=== PATIENT | female | born 1985 | race American Indian/Alaskan Native ===

== ENCOUNTER 2019-04-06 02:05 | Emergency (ER) | payer BC ==
[2019-04-06 02:34] LABS: Basophils # (Auto) 0.1 K/mm3 (0.0-0.1); Basophils % (Auto) 0.5 % (0.0-1.8); Eosinophils # (Auto) 0.1 K/mm3 (0.0-0.4); Eosinophils % (Auto) 1.1 % (0.0-4.3); Hematocrit 36.8 % (30.3-42.9); Hemoglobin 12.8 gm/dl (10.1-14.3); Lymphocytes # (Auto) 2.2 K/mm3 (1.2-5.4); Mean Corpuscular HGB Conc 35 % (30-34); Mean Corpuscular Volume 98 fl (79-97); Monocytes # (Auto) 0.9 K/mm3 (0.0-0.8); Monocytes % (Auto) 9.1 % (0.0-7.3); Platelet Count 267 K/mm3 (140-440); Red Blood Count 3.77 M/mm3 (3.65-5.03); Red Cell Distribution Width 12.2 % (13.2-15.2)
[2019-04-06 02:53] LABS: HCG Qualitative,Urine Negative (Negative)
[2019-04-06 02:55] LABS: Bacteria,Urine 1+ /HPF (Negative); Bilirubin,Urine NEG (Negative); Blood,Urine MOD (Negative); Color,Urine Yellow (Yellow); Urobilinogen,Urine < 2.0 mg/dL (<2.0)
[2019-04-06 02:55] LABS: Alanine Aminotransferase 9 units/L (7-56); Albumin 4.3 g/dL (3.9-5); BUN/Creatinine Ratio 8; Blood Urea Nitrogen 6 mg/dL (7-17); Hemolysis Index 0
[2019-04-06 02:59] LABS: WBC,Urine > 182.0 /HPF (0.0-6.0)
[2019-04-06] MEDS ORDERED: cefTRIAXone/NS 1 GM/50 ML 1 GM/50 ML BAG IV ONE (04:02)
--- NOTE | 2019-04-06 04:59 | Emergency Department Report ---
ED Female HPI - General Chief complaint: Abdominal Pain Stated complaint: RT FLANK PAIN Time Seen by Provider: 04/06/19 03:48 Source: patient Mode of arrival: Ambulatory Limitations: No Limitations - History of Present Illness Initial comments: Patient is a 33-year-old female presents to the emergency room with complaints of right lower back pain that began a couple days ago. She has associated pressure upon urinating. Patient denies any abdominal pain, fever, nausea, vomiting or diarrhea, abnormal vaginal discharge. She states that she is able tolerate by mouth intake. She states that she has implanted control. Denies any past medical history or allergies to medications. - Related Data Previous Rx's Medication Instructions Recorded Last Taken Type cephALEXin [Keflex] 500 mg PO BID 10 Days #20 capsule 04/06/19 Unknown Rx Allergies Allergy/AdvReac Type Severity Reaction Status Date / Time No Known Allergies Allergy Verified 04/06/19 02:10 ED Review of Systems ROS: Stated complaint: RT FLANK PAIN Other details as noted in HPI Comment: All other systems reviewed and negative ED Past Medical Hx - Past Medical History Previous Medical History?: No - Surgical History Past Surgical History?: Yes Hx Cholecystectomy: Yes - Social History Smoking Status: Current Every Day Smoker Substance Use Type: None - Medications Home Medications: Home Medications Medication Instructions Recorded Confirmed Last Taken Type cephALEXin [Keflex] 500 mg PO BID 10 Days #20 capsule 04/06/19 Unknown Rx ED Physical Exam - General Limitations: No Limitations General appearance: alert, in no apparent distress - Head Head exam: Present: atraumatic, normocephalic - Eye Eye exam: Present: normal appearance - ENT ENT exam: Present: mucous membranes moist - Respiratory Respiratory exam: Present: normal lung sounds bilaterally. Absent: respiratory distress, wheezes, rales, rhonchi, stridor, chest wall tenderness, accessory muscle use, decreased breath sounds, prolonged expiratory - Cardiovascular Cardiovascular Exam: Present: regular rate, normal rhythm, normal heart sounds. Absent: systolic murmur, diastolic murmur, rubs, gallop - GI/Abdominal GI/Abdominal exam: Present: soft, normal bowel sounds. Absent: distended, tenderness, guarding, rebound, rigid - Back Exam Back exam: Present: CVA tenderness (R) (mild) - Neurological Exam Neurological exam: Present: alert, oriented X3 - Psychiatric Psychiatric exam: Present: normal affect, normal mood - Skin Skin exam: Present: warm, dry, intact ED Course Vital Signs 04/06/19 06:42 Temperature 99.0 F Pulse Rate 89 Respiratory 20 Rate Blood Pressure 103/57 [Right] O2 Sat by Pulse 99 Oximetry ED Medical Decision Making - Lab Data Result diagrams: 04/06/19 02:12 04/06/19 02:12 Lab Results 04/06/19 04/06/19 04/06/19 Range/Units 02:12 02:12 Unknown WBC 9.6 (4.5-11.0) K/mm3 RBC 3.77 (3.65-5.03) M/mm3 Hgb 12.8 (10.1-14.3) gm/dl Hct 36.8 (30.3-42.9) % MCV 98 H (79-97) fl MCH 34 H (28-32) pg MCHC 35 H (30-34) % RDW 12.2 L (13.2-15.2) % Plt Count 267 (140-440) K/mm3 Lymph % (Auto) 23.0 (13.4-35.0) % Sharp % (Auto) 9.1 H (0.0-7.3) % Eos % (Auto) 1.1 (0.0-4.3) % Baso % (Auto) 0.5 (0.0-1.8) % Lymph # 2.2 (1.2-5.4) K/mm3 Sharp # 0.9 H (0.0-0.8) K/mm3 Eos # 0.1 (0.0-0.4) K/mm3 Baso # 0.1 (0.0-0.1) K/mm3 Seg Neutrophils % 66.3 (40.0-70.0) % Seg Neutrophils # 6.4 (1.8-7.7) K/mm3 Sodium 141 (137-145) mmol/L Potassium 4.0 (3.6-5.0) mmol/L Chloride 105.2 (98-107) mmol/L Carbon Dioxide 24 (22-30) mmol/L Anion Gap 16 mmol/L BUN 6 L (7-17) mg/dL Creatinine 0.8 (0.7-1.2) mg/dL Estimated GFR > 60 ml/min BUN/Creatinine Ratio 8 % Glucose 119 H (65-100) mg/dL Calcium 9.0 (8.4-10.2) mg/dL Total Bilirubin 0.50 (0.1-1.2) mg/dL AST 10 (5-40) units/L ALT 9 (7-56) units/L Alkaline Phosphatase 86 (35-129) units/L Total Protein 6.5 (6.3-8.2) g/dL Albumin 4.3 (3.9-5) g/dL Albumin/Globulin Ratio 2.0 % Urine Color Yellow (Yellow) Urine Turbidity Cloudy (Clear) Urine pH 7.0 (5.0-7.0) Ur Specific Jennings 1.008 (1.003-1.030) Urine Protein 100 mg/dl (Negative) mg/dL Urine Glucose (UA) Neg (Negative) mg/dL Urine Ketones Neg (Negative) mg/dL Urine Blood Mod (Negative) Urine Nitrite Neg (Negative) Ur Reducing Substances Not Reportable Urine Bilirubin Neg (Negative) Urine Ictotest Not Reportable Urine Urobilinogen < 2.0 (<2.0) mg/dL Ur Leukocyte Esterase Lg (Negative) Urine WBC (Auto) > 182.0 H (0.0-6.0) /HPF Urine RBC (Auto) 19.0 (0.0-6.0) /HPF Urine Bacteria (Auto) 1+ (Negative) /HPF Urine HCG, Qual Negative (Negative) - Medical Decision Making Patient is a 33-year-old female presents to the emergency room with complaints of right lower back pain that began a couple days ago. She has associated pressure upon urinating. Patient denies any abdominal pain, fever, nausea, vomiting or diarrhea, abnormal vaginal discharge. She states that she is able tolerate by mouth intake. She states that she has implanted control. Denies any past medical history or allergies to medications.vitals are normal. no abd tenderness on exam, mild right CVAT. labs are normal. no leukocytosis. UA with many WBCs and large leukocyte esterase. pt given 1g of ceftriaxone. pt has no leukocytosis, no fever, no n/v, tolerating PO intake, pt is a candidate for outpatient treatment. pt given prescription for keflex. advised pt to please take medication as prescribed to completion. please increase your water intake over the next several days. follow up with a primary care doctor in the next 2- 3 days if you do not have a primary care doctor one has been listed below. return to the emergency room for any new or worsening symptoms including but not limited to worsening pain, fever, nausea, vomiting, unable to keep down your antibiotics. Critical care attestation.: If time is entered above; I have spent that time in minutes in the direct care of this critically ill patient, excluding procedure time. ED Disposition Clinical Impression: UTI (urinary tract infection) Qualifiers: Urinary tract infection type: acute cystitis Hematuria presence: with hematuria Qualified Code(s): N30.01 - Acute cystitis with hematuria Disposition: TO HOME OR SELFCARE Is pt being admited?: No Does the pt Need Aspirin: No Condition: Stable Instructions: Urinary Tract Infection in Women (ED) Additional Instructions: please take medication as prescribed to completion. please increase your water intake over the next several days. follow up with a primary care doctor in the next 2-3 days if you do not have a primary care doctor one has been listed below. return to the emergency room for any new or worsening symptoms including but not limited to worsening pain, fever, nausea, vomiting, unable to keep down your antibiotics. Prescriptions: cephALEXin [Keflex] 500 mg PO BID 10 Days #20 capsule Referrals: [facility] [Provider Group] - 2-3 Days Time of Disposition: 04:57 Print Language: LATVIAN
[2019-04-06 06:46] VITALS: BP 103/57
== END 2019-04-06 06:20 | disposition home or self-care (01) ==
LOC: ED 02:05
DX: N39.0 Urinary tract infection, site not specified (principal); F17.200 Nicotine dependence, unspecified, uncomplicated; Z79.899 Other long term (current) drug therapy; Z90.49 Acquired absence of other specified parts of digestive tract
CPT/HCPCS: 36415; 80053; 81001; 81025; 85025; 99283; J0696